=== PATIENT | male | born 1935 | race Caucasian/White ===

== ENCOUNTER 2018-12-11 18:48 | Emergency (ER) | payer MEDICARE, BC ==
--- NOTE | 2018-12-11 18:58 | ED Physician Documentation ---
PD HPI UPPER EXT INJURY - Stated complaint Stated Complaint: R HAND LAC - Chief complaint Chief Complaint: Ext Problem - History obtained from History obtained from: Patient - History of Present Illness Location: Right (He slipped and fell injuring his right dominant thumb. Tetanus is up-to-date. No other injuries. Pain is minimal.) Review of Systems Constitutional: reports: Reviewed and negative Throat: reports: Reviewed and negative Cardiac: reports: Reviewed and negative PD PAST MEDICAL HISTORY - Past Surgical History Ortho: Rotator cuff repair - Allergies Allergies/Adverse Reactions: Allergies Allergy/AdvReac Type Severity Reaction Status Date / Time No Known Drug Allergies Allergy Verified 12/11/18 18:54 PD ED PE NORMAL - Vitals Vital signs reviewed: Yes - General General: Alert and oriented X 3, No acute distress - Extremities Extremities: Other (There is tenderness and ecchymosis along the first metacarpal of the right hand with an overlying abrasion but no laceration. No UCL laxity.) - Neuro Neuro: Alert and oriented X 3, Normal speech Results - Vitals Vitals: Vital Signs - 24 hr 12/11/18 18:52 Temperature 36.6 C Heart Rate 102 H Respiratory 17 Rate Blood Pressure 158/78 H O2 Saturation 96 Oxygen O2 Source Room air - Rads (name of study) R thumb Radiology: EMP read contemporaneously (Suspect dorsal osteophyte fracture of the first distal phalanx) Procedures - Splint (location) RUE Splint applied by: Tech Type of splint: Fiberglass, Short arm, Thumb spica Other: Patient tolerated well, No complications, Neurovascular intact Departure - Departure Disposition: 01 Home, Self Care Clinical Impression: Fracture of proximal phalanx of right hand Condition: Good Record reviewed to determine appropriate education?: Yes Instructions: ED Fx Finger Closed Follow-Up: [facility] [Provider Group] - Within 1 week Comments: Call the orthopedic surgeon for follow-up, follow-up within the week. Call tomorrow. Return if worse. Keep the splint on and dry at all times until then, do not remove it. Tylenol as needed for pain. Return if worse. Your blood pressure was elevated today on check into the emergency department. This does not mean that you have hypertension, it is a common phenomenon to come to the emergency department and have elevated blood pressure. I recommend that you see your primary care physician within the week to have it rechecked when you are feeling better. Discharge Date/Time: 12/11/18 19:49
[2018-12-11 18:59] VITALS: BP 158/78
--- NOTE | 2018-12-11 19:20 | XRAY Report ---
Reason: hand inj Procedure Date: 12/11/2018 Accession Number: [id number] / [id number] Procedure: XR - Finger(s) RT CPT Code: FULL RESULT: EXAM: RIGHT FIRST DIGIT RADIOGRAPHY EXAM DATE: 12/11/2018 07:10 PM. CLINICAL HISTORY: Trauma, pain. COMPARISON: None. TECHNIQUE: 3 views. FINDINGS: Bones: Bone fragment dorsal to the first proximal phalanx on lateral view may represent a fractured osteophyte. No other evidence of fracture or bone lesion. Joints: Mild to moderate degenerative changes. Soft Tissues: Small soft tissue calcifications in the web space. Mild soft tissue swelling. IMPRESSION: Possible dorsal osteophyte fracture of first distal phalanx versus chronic change. [facility]
== END 2018-12-11 19:49 | disposition home or self-care (01) ==
LOC: ED 18:48
DX: S62.521A Displaced fracture of distal phalanx of right thumb, initial encounter for closed fracture (principal); S60.311A Abrasion of right thumb, initial encounter; W01.0XXA Fall on same level from slipping, tripping and stumbling without subsequent striking against object, initial encounter; Y93.89 Activity, other specified; Y92.828 Other wilderness area as the place of occurrence of the external cause; R03.0 Elevated blood-pressure reading, without diagnosis of hypertension
CPT/HCPCS: 73140; 99282; 99283

== ENCOUNTER 2022-05-14 13:32 | Outpatient (CLI) | payer BC, MEDICARE | END 2022-05-14 13:33 | disposition EMS.NT | LOC: EMS 13:32 | DX: R53.1 Weakness (principal); R19.7 Diarrhea, unspecified ==

== ENCOUNTER 2023-10-24 14:57 | Outpatient (CLI) | payer MEDICARE | END 2023-10-24 23:59 | disposition short-term general hospital (02) | LOC: EMS 14:57 | DX: S29.9XXA Unspecified injury of thorax, initial encounter (principal); W11.XXXA Fall on and from ladder, initial encounter; Y93.H9 Activity, other involving exterior property and land maintenance, building and construction; Y92.008 Other place in unspecified non-institutional (private) residence as the place of occurrence of the external cause; R09.89 Other specified symptoms and signs involving the circulatory and respiratory systems | CPT/HCPCS: A0425; A0429 ==